=== PATIENT | male | born 1960 | race Caucasian/White ===

== ENCOUNTER 2018-01-08 13:29 | Inpatient (IN) ==
--- NOTE | 2018-01-08 15:54 | Internal Med History&Physical ---
<Steven Grace - Last Filed: 01/08/18 17:07> Date of Encounter: 01/08/18 Time of Encounter: 15:00 Internal Medicine - H&P: HPI Chief complaint: Left hemianopsia Admitted From: Direct Admit Plans for Post Hospital Care: Home History of present illness: Mr. Sparrow is a 57 year old male PMHx hiatal hernia, anxiety on Valium, chornic pain on [place], presents today as recommended by Dr. Brizuela due to left- sided hemianopsia for 1.5 months. Skull XR with retained magnetic metal on right lateral scapl, but was ok to perform MRI. MRI last week with demonstrated right occipital infarction and hemorrhage, right paraoccipital junction infarct , cortical laminar necrosis, old infarcts at left occipital and right frontal lobe. Patient did not come to [facility] until today. He reports hemianopsia started 1.5 months ago after nerve block for chronic back pain. He also developed left sided numbness and tingling for 3 days that self-resolved. He denies previous CAD history, smoking, [place]. Never had stress test, echo, LHC in the past. Denies history of seizures. Has never been on aspirin or statin. He is not on anti- hypertensives. He admits to worsening memory but denies MURO, confusion, CP, palpitations, SOB, cough, abdominal pain, n/v/d/c. He reports hemianopsia is only on left eye. Denies worsening floaters. Has never happened before. Denies eye pain or eye discharge. Past Med Surg Social Fam HX - Past Medical History Medical history: arthritis, GERD Additional medical history: DDD Psychiatric history: anxiety, depression - Past Surgical History Surgical History: herniorrhaphy Additional surgical history: egd - Social History Smoking Status: Never smoker Smokeless Tobacco Status: No Alcohol use: none Drug use: none - Family History Mother Living Status: Age at : 77 Cause of : dementia Internal Medicine - H&P: Meds Cyanocobalamin (Vitamin B-12) [Vitamin B12] 1,000 mcg PO DAILY 06/01/16 [History ] Ergocalciferol (VITAMIN D2) [Vitamin D] 400 unit PO DAILY 06/01/16 [History] Ginseng 200 mg PO DAILY 06/01/16 [History] Omeprazole [PriLOSEC] 20 mg PO BIDAC 06/01/16 [History] Aspirin [Aspirin] 81 mg PO DAILY 01/08/18 [History] HYDROcodone/Acet 10/325 mg [[place] 10-325 mg] 1 tab PO Q6HR PRN 01/08/18 [History ] Tizanidine HCl 4 mg PO BID PRN 01/08/18 [History] diazePAM [Valium] 5 mg PO BID PRN 01/08/18 [History] 3 Allergy/AdvReac Type Severity Reaction Status Date / Time tramadol Allergy Hives Verified 06/01/16 10:19 lactase [From Dairy Aid] AdvReac Gastrointestinal Verified 06/01/16 10:19 Upset ROS unobtainable: due to endotracheal tube All Systems PM: A 10-system review of systems was performed and is negative for pertinent findings except as documented above in the HPI. - Constitutional Constitutional: as per HPI - EENT Eyes: as per HPI Ears: as per HPI - Cardiovascular Cardiovascular ROS IM: as per HPI - Respiratory Respiratory: as per HPI - Gastrointestinal Gastrointestinal: as per HPI - Genitourinary Genitourinary ROS male: as per HPI - Integumentary Integumentary IM: as per HPI - Neurological Neurological ROS: as per HPI - Psychiatric Psychiatric: as per HPI - Hematologic/Lymphatic Hematologic/Lymphatic: as per HPI - Constitutional Vitals: Temp Pulse Resp BP Pulse Ox 98.3 F 80 16 159/97 97 01/08/18 14:30 01/08/18 14:30 01/08/18 14:30 01/08/18 14:30 01/08/18 14:30 General appearance: Present: A&O X 3, no acute distress, answers questions appropriately Exam: NAD - Head Head exam: Present: atraumatic, normal inspection, normocephalic - Eye Eye exam: Present: EOMI, normal appearance, PERRL Pupils: Present: PERRL Additional comments: Loss of left sided visual field by left eye. - Neck Neck exam general surgery: Present: full ROM - Respiratory Respiratory exam: Present: CTAB. Absent: accessory muscle use, rales, wheezes - Cardiovascular Cardiovascular exam: Present: RRR, +S1, +S2 - GI/Abdominal GI/Abdominal exam: Present: soft, no peritoneal signs. Absent: diminished bowel sounds, guarding, hyperactive bowel sounds - Extremities Exam Extremities exam: Present: normal inspection. Absent: pedal edema - Neurological Exam Neurological exam: Present: alert, CN II-XII intact, oriented X3, no focal deficits, strengths equal and symetr throughout. Absent: motor sensory deficit - Psychiatric Psychiatric exam: Present: normal affect, normal mood Internal Med - H&P Results - Labs CBC & Chem 7: 01/08/18 15:46 01/08/18 15:46 - Assessment and plan (1) Stroke of unknown etiology Current Visit: Yes Status: Acute Assessment and plan: MRI with signs of multi-infarcts. Etiology unknown. Left hemiopsia noted. No loss of sensation or strength testing. Patient also complaining of headache for the last [address] head/ brain wo contrast to rule out acute bleed. Pending EKG, BL Carotid Duplex, Echo. Patient passed dysphagia screening. Ok to start cardiac diet. Tox screen to rule out illicit drug use Will start atorvastatin 40mg daily and baby aspirin. NIHSS Pending labs: coagulation studies CBC COMT Urine tox Heparin anti-factor XA Lpid cascade Troponin UA Dr. Steiner has contacted Dr. Perkins in regards to patient being here. Neurology consult and recommendations appreciated. (2) Hypertension Current Visit: Yes Status: Acute Assessment and plan: permissive hypertension in the setting of possible hemorrhagic stroke. Continue to monitor vital signs. Qualifiers: Hypertension type: essential hypertension Qualified Code(s): I10 - Essential (primary) hypertension (3) Hemianopia of left eye Current Visit: Yes Status: Acute Assessment and plan: see above. (4) DVT prophylaxis Current Visit: Yes Status: Acute Assessment and plan: SCDs - Time Spent With Patient Total time spent is greater than 50% in coordination of care (as documented) at patient's floor/unit and/or counseling patient: Greater than 35 minutes <Andrez Steiner - Last Filed: 01/08/18 18:49> Date of Encounter: 01/08/18 Internal Medicine - H&P: HPI History of present illness: Mr. Sparrow is a 57 year old male All Systems PM: A 10-system review of systems was performed and is negative for pertinent findings except as documented above in the HPI. - Constitutional Vitals: Temp Pulse Resp BP Pulse Ox 98.3 F 80 16 159/97 97 01/08/18 14:30 01/08/18 14:30 01/08/18 14:30 01/08/18 14:30 01/08/18 14:30 Internal Med - H&P Results - Labs CBC & Chem 7: 01/08/18 15:46 01/08/18 15:46 Labs: Short CBC 01/08/18 Range/Units 15:46 WBC 8.0 (4.3-11.1) K/mcL Hgb 16.2 (12.9-16.9) g/dL Hct 46.3 (37.5-50.1) % Plt Count 233 (140-400) K/mcL Neutrophils # 4.1 (1.6-8.9) K/mcL BMP 01/08/18 15:46 Sodium 137 Potassium 3.8 Chloride 108 H Carbon Dioxide 23 BUN 15 Creatinine 1.17 Glucose 96 Calcium 9.5 Cardiac Enzymes 01/08/18 Range/Units 15:46 Troponin I < 0.03 (< 0.04) ng/mL Liver Function 01/08/18 Range/Units 15:46 Total Bilirubin 0.3 (0.3-1.0) mg/dL AST 19 (13-39) Units/L ALT 27 (7-52) Units/L Alkaline Phosphatase 101 (34-104) Units/L Albumin 4.4 (3.5-5.7) g/dL - Assessment and plan (1) CVA (cerebral vascular accident) Current Visit: Yes Status: Acute Qualifiers: CVA mechanism: embolism Precerebral and cerebral artery: posterior cerebral artery Laterality of affected vessel: left Qualified Code(s): I63.432 - Cerebral infarction due to embolism of left posterior cerebral artery (2) Hypertension Current Visit: Yes Status: Chronic Qualifiers: Hypertension type: essential hypertension Qualified Code(s): I10 - Essential (primary) hypertension (3) Hyperlipidemia Current Visit: Yes Status: Chronic Qualifiers: Hyperlipidemia type: mixed hyperlipidemia Qualified Code(s): E78.2 - Mixed hyperlipidemia - Time Spent With Patient Total time spent is greater than 50% in coordination of care (as documented) at patient's floor/unit and/or counseling patient: - Attending Attestation I examined this patient and my medical decision-making was reviewed with the Resident Physician on 01/08/18. I agree with the documented findings, disposition and treatment plan as described except to the extent set forth below. Mr Sparrow is 57 y/o male with hx of chronic back pain direct admitted due to acute CVA. He was evaluated in office last week and had hemianopsia. MRI showed acute occipital CVA as well as additional subacute/acute CVA. He was to be admitted last Monday but did not come in until today. Currently he has no new neuro complaints. He is only complaining of headache since MRI. He does say that he feels heart "fluttering" occasionally. Exam alert Comfortable Mucus membranes dry Heart reg No wheeze L hemianopsia present Abd soft No edema. I/P 1. Acute CVA - most likely embolic. Echo, carotid. ASA. Neuro eval. Tele. May need loop recorder if everything is negative. Further diagnoses and plan as above.
[2018-01-08 16:03] LABS: Basophils # 0.1 K/mcL (0.0-0.2); Basophils % 0.9 %; Eosinophils # 0.1 K/mcL (0.0-0.6); Eosinophils % 1.6 %; Hematocrit 46.3 % (37.5-50.1); Hemoglobin 16.2 g/dL (12.9-16.9); Immature Granulocytes % 0.3 % (0-4); Lymphocytes % 36.9 %; Mean Corpuscular Hemoglobin 30.2 pg (28.0-33.3); Mean Corpuscular Volume 86.2 fL (83.0-100.0); Monocytes # 0.7 K/mcL (0.0-1.3); Monocytes % 8.9 %; Neutrophils # 4.1 K/mcL (1.6-8.9); Platelet Count 233 K/mcL (140-400); Red Blood Count 5.37 M/mcL (4.19-5.50); Segmented Neutrophils % 51.4 %
[2018-01-08 16:11] LABS: Heparin anti-factor XA UFH 0.07 IU/mL (0.30-0.70)
[2018-01-08 16:14] LABS: Activated Partial Thrombo Time 28.8 Seconds (26.0-36.0); Estimated Average Glucose 117 mg/dl; Hemoglobin A1C 5.7 %
[2018-01-08 16:20] LABS: Alanine Aminotransferase 27 Units/L (7-52); Albumin 4.4 g/dL (3.5-5.7); Albumin/Globulin Ratio 1.4 (1.1-2.2); Alkaline Phosphatase 101 Units/L (34-104); Aspartate Amino Transferase 19 Units/L (13-39); BUN/Creatinine Ratio 13 (6-26); Bilirubin,Total 0.3 mg/dL (0.3-1.0); Blood Urea Nitrogen 15 mg/dL (6-20); Calcium 9.5 mg/dL (8.6-10.3); Carbon Dioxide 23 mEq/L (23-29); Chloride 108 mEq/L (98-107); Chol/HDL Ratio 9.5 (0-4.9); Cholesterol 265 mg/dL (< 200); Globulin 3.2 g/dL (2.4-3.5); Glucose 96 mg/dL (70-105); HDL Cholesterol 28 mg/dL (40-59); Osmolality,Calculated 285 (280-300); Potassium 3.8 mEq/L (3.5-5.1); Sodium 137 mEq/L (136-145); Total Protein 7.6 g/dL (6.4-8.9); Triglycerides 433 mg/dL (< 150); eGFR For Non-African Americans > 60 (> 60)
[2018-01-08 16:33] LABS: LDL Cholesterol,Direct 175 mg/dL (75-193)
[2018-01-08] MEDS ORDERED: Isovue-370 500 ML INFUS..BTL IV ONE (17:48)
--- NOTE | 2018-01-08 17:52 | Neurology - Consult Note ---
Date of Encounter: 01/09/18 Time of Encounter: 10:07 Assessment and Plan (1) CVA (cerebral vascular accident) Current Visit: Yes Status: Acute 57 year old man with HTN, obesity and hyperlipidemia who suffered acute right occipital lobe infarct, this could be occlusion of right FIELD TEST ENGINEER or embolic phenomenon. He has no known history of cardiac dysarhythmia. Cause of stroke is mostly likely atherosclerosis to intracranial vasculature but embolic phenomenon can not be excluded. This is a rather young patient therefore would recommend CARLOS to look for source of emboli. CTA of head is unable to confirm presence of right FIELD TEST ENGINEER occlusion. Patient is currently asymptomatic. Will keep him on Aspirin daily and continue statin therapy. He is advised to get sleep study as an outpatient. Regulate BP and treat HTN aggressively. Already out of acute phase of stroke. Case discussed with primary medical team. Qualifiers: CVA mechanism: occlusion Precerebral and cerebral artery: posterior cerebral artery Laterality of affected vessel: right Qualified Code(s): I63.531 - Cerebral infarction due to unspecified occlusion or stenosis of right posterior cerebral artery History of Present Illness Chief complaint: Visual difficulty and stroke HPI: Mr. Sparrow is a 57 year old male with PMH significant for degenerative joint disease, chronic pain who is consulted regarding abnormal MRI of brain findings of right occipital infarct. Patient developed visual changes about one and half months ago. Describes loss of visual field to the left side, without any significant motor weakness. Then he was ordered MRI of brain which was done last Monday showing presence of right occipital subacute infarct. He was advised to go to ER to be admitted but her refused at the time and then showed up yesterday and was then admitted for work up. He states that his visual slightly improved but he still has problems to the left visual field. He denies headaches, weakness, speech difficulty. He saw an eyewear manufacturing supervisor who told him the his vision is 20/20. At the time of the interview, CTA of neck and head were completed. No significant major artery stenosis reported. Echo result is pending Patient is on Aspirin 81mg daily and statin therapy. Has history of HTN but not been compliant with therapy Past Med Surg Social Fam HX - Past Medical History Medical history: arthritis, GERD Additional medical history: DDD Psychiatric history: anxiety, depression - Past Surgical History Surgical History: herniorrhaphy Additional surgical history: egd - Social History Smoking Status: Never smoker Smokeless Tobacco Status: No Alcohol use: none Drug use: none - Family History Mother Living Status: Age at : 77 Cause of : dementia Medications and Allergies Cyanocobalamin (Vitamin B-12) [Vitamin B12] 1,000 mcg PO DAILY 06/01/16 [History ] Ergocalciferol (VITAMIN D2) [Vitamin D] 400 unit PO DAILY 06/01/16 [History] Ginseng 200 mg PO DAILY 06/01/16 [History] Omeprazole [PriLOSEC] 20 mg PO BIDAC 06/01/16 [History] Aspirin [Aspirin] 81 mg PO DAILY 01/08/18 [History] HYDROcodone/Acet 10/325 mg [[place] 10-325 mg] 1 tab PO Q6HR PRN 01/08/18 [History ] Tizanidine HCl 4 mg PO BID PRN 01/08/18 [History] diazePAM [Valium] 5 mg PO BID PRN 01/08/18 [History] 3 Allergy/AdvReac Type Severity Reaction Status Date / Time tramadol Allergy Hives Verified 06/01/16 10:19 lactase [From Dairy Aid] AdvReac Gastrointestinal Verified 06/01/16 10:19 Upset All Systems: The remainder of the systems were reviewed and are negative Physical Examination - Vital Signs Vital Signs: Initial Vital Signs Temp Pulse Resp BP Pulse Ox 98.3 F 80 16 159/97 97 01/08/18 14:30 01/08/18 14:30 01/08/18 14:30 01/08/18 14:30 01/08/18 14:30 - Constitutional General appearance: comfortable - Neurologic Sensorimotor examination: intact Detailed motor examination: grossly full strength in all extremities Motor examination - right side: 5/5: deltoids, biceps, triceps, wrist flexion, wrist extension, construction field engineer, hip flexors, tibialis Anterior, quadriceps, toe extension (EHL), plantarflexion Detailed sensory examination: intact Posture: other (None) Reflex and gait examination: intact Reflexes: Biceps: 2+, Triceps: 2+, Brachioradialis: 2+, Patella: 2+, Achilles: 2 + Mental Status Examination: awake, alert, oriented to person, oriented to place, oriented to time, follows commands appropriately, answers questions appropriately, no agnosia, no aphasia, no aproxia Cranial nerve examination: PERRL, EOMI, visual weems intact (Left hemianopsia noted, especially upper quadrant), corneal reflexes brisk symmetrically, sensory to face intact, mastication intact, no facial asymmetry is present, no dysarthria, hearing is intact symmetrically, soft palate elevates bilaterally upon phonation, gag reflex intact, flexes SCM and trapezius muscles symmetrically with full power, tongue protrudes midline, no atrophy or facial fasiculations present Results - Laboratory Findings CBC and BMP: 01/08/18 15:46 01/08/18 15:46 Abnormal lab findings: Abnormal lab results MPV 9.0 fL (9.4-12.4) L 01/08/18 15:46 Heparin Anti-Xa, Unfract 0.07 IU/mL (0.30-0.70) L 01/08/18 15:46 Chloride 108 mEq/L (98-107) H 01/08/18 15:46 Hemoglobin A1c 5.7 % (-5.6) H 01/08/18 15:46 Triglycerides 433 mg/dL (< 150) H 01/08/18 15:46 Cholesterol 265 mg/dL (< 200) H 01/08/18 15:46 HDL Cholesterol 28 mg/dL (40-59) L 01/08/18 15:46 Cholesterol/HDL Ratio 9.5 (0-4.9) H 01/08/18 15:46 Consult Discharge Plan - Plan Referrals: Torrey Smith DO [Primary Care Provider] -
[2018-01-08] MEDS ORDERED: tiZANidine 4 MG TABLET PO PRN (18:41)
[2018-01-08] MEDS: diazePAM 5 MG TABLET PO PRN (20:20)
[2018-01-08] MEDS: *HR* HYDROcodone/Acet 10/325 mg TABLET PO PRN (20:20)
[2018-01-08 23:48] LABS: Bilirubin,Urine Negative (Negative); Blood,Urine Negative (Negative); Clarity,Urine Clear (Clear); Color,Urine Yellow (Yellow); Glucose,Urine (UA) Normal (Normal); Ketones,Urine Negative (Negative); Leukocyte Esterase,Urine Negative (Negative); Nitrite,Urine Negative (Negative); Protein,Urine Negative (Neg-Trace); Specific Gravity,Urine 1.015 (1.010-1.025); Urobilinogen,Urine Normal (Normal)
[2018-01-09 00:15] LABS: Amphetamine Screen,Urine Negative ng/mL (Cutoff=1000); Barbiturate Screen,Urine Negative ng/mL (Cutoff=200); Benzodiazepines Screen,Urine Positive ng/mL (Cutoff=200); Cannabinoid Screen,Urine Negative ng/mL (Cutoff = 50); Cocaine Screen,Urine Negative ng/mL (Cutoff= 300); Opiate Screen,Urine Positive ng/mL (Cutoff=300); Phencyclidine Screen,Urine Negative ng/mL (Cutoff=25)
[2018-01-09] MEDS: *HR* HYDROcodone/Acet 10/325 mg TABLET PO PRN ×3 (02:23→15:26)
[2018-01-09] MEDS: diazePAM 5 MG TABLET PO PRN ×2 (08:50→15:26)
[2018-01-09] MEDS ORDERED: Aspirin 81 MG TAB.CHEW PO SCH (09:00)
[2018-01-09 11:40] VITALS: BP 131/85
--- NOTE | 2018-01-09 13:46 | Discharge Summary ---
<Steven Grace - Last Filed: 01/09/18 13:40> - NOTES TO OUTPATIENT PROVIDER Notes to Outpatient Provider: Started patient on atorvastatin 80mg daily, Toprol 100mg daily, ASA 81mg daily Orders not resulted at time of discharge: Pending orders 01/08/18 14:37 ECG 12 lead ECG [ECG] Routine Date of Encounter: 01/09/18 Time of Encounter: 09:00 - Discharge Diagnosis (1) Stroke of unknown etiology Priority: Primary Status: Acute (2) Hypertension Priority: Secondary Status: Chronic Qualifiers: Hypertension type: essential hypertension Qualified Code(s): I10 - Essential (primary) hypertension (3) Hemianopia of left eye Priority: Secondary Status: Acute Hospital course: Mr. Sparrow is a 57 year old male has a history of hiatal hernia, anxiety on Valium, chronic pain on [place], presented for left-sided hemianopsia for 1-1/2 months. Skull x-ray outpatient demonstrated retained magnetic metal on right lateral scalp but MRI was okay to perform. MRI last week demonstrated right occipital infarction and hemorrhage, right paroxysmal purulence and infarct, cortical laminar necrosis, old infarcts at left occipital and right frontal lobe. He reports that hemianopsia started 1.5 months ago after nerve block for chronic back pain. He also developed left-sided numbness and tingling for 3 days that self resolved. No history of CAD, smoking, [place]. No history of stress test, echo, left heart catheter in the past. Denies worsening floaters, eye pain, eye discharge. Patient also reported three-day history of headache after MRI last week. 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 No signs of limiting stenosis. Patient denied any left-sided current numbness or tingling. No focal deficits were found besides the left-sided hemianopsia secondary to subacute infarct of occipital lobe. Neurology was consulted. No acute interventions required at this time. He is to follow up with neurology outpatient for monitoring of saccular aneurysm. Start on BB (patient reports adverse effects with ACEI), atorvastatin, and ASA. Discharge discussed with: patient Time spent discussing smoking cessation with patient: 3 to 10 minutes - Time Spent with Patient Total time spent providing and/or coordinating discharge services: Greater than 30 minutes - Discharge Medications Prescriptions: Atorvastatin [Lipitor] 80 mg PO HS #30 tablet Metoprolol Succinate 100 mg PO DAILY #30 tab.er.24h Home Medications: Cyanocobalamin (Vitamin B-12) [Vitamin B12] 1,000 mcg PO DAILY 06/01/16 [History ] Ergocalciferol (VITAMIN D2) [Vitamin D] 400 unit PO DAILY 06/01/16 [History] Ginseng 200 mg PO DAILY 06/01/16 [History] Omeprazole [PriLOSEC] 20 mg PO BIDAC 06/01/16 [History] Aspirin 81 mg PO DAILY 01/08/18 [History] HYDROcodone/Acet 10/325 mg [[place] 10-325 mg] 1 tab PO Q6HR PRN 01/08/18 [History ] Tizanidine HCl 4 mg PO BID PRN 01/08/18 [History] Atorvastatin [Lipitor] 80 mg PO HS #30 tablet 01/09/18 [Rx] Metoprolol Succinate 100 mg PO DAILY #30 tab.er.24h 01/09/18 [Rx] Allergies/Adverse Reactions: 3 Allergy/AdvReac Type Severity Reaction Status Date / Time tramadol Allergy Hives Verified 06/01/16 10:19 lactase [From Dairy Aid] AdvReac Gastrointestinal Verified 06/01/16 10:19 Upset Date of admission: 01/08/18 14:09 Primary care physician: Torrey Smith, Consults: 01/08/18 17:00 Consult to Neurology [CONS] Stat Consulting Provider: Neurology [facility] Reason for Consult: left hemianopsia Call Completed: Yes 01/08/18 18:40 PT [Consult to Physical Therapy] [CONS] Routine Comment: Evaluate, develop and implement POC Reason for Consult: Acute CVA Does patient have active BEDREST order?: No Is patient medically & hemodynamically stable?: Yes Patient assessed for mobility or mobilized this visit?: Yes Discharging clinician: Steven Grace Anticipated date of discharge: 01/09/18 - Constitutional Vitals: Temp Pulse Resp BP Pulse Ox 97.6 F 72 17 131/85 98 01/09/18 11:37 01/09/18 11:37 01/09/18 11:37 01/09/18 11:37 01/09/18 11:37 General appearance: Present: A&O X 3, no acute distress, answers questions appropriately Exam: General appearance: Present: A&O X 3, no acute distress, answers questions appropriately. NAD - Head Head exam: Present: atraumatic, normal inspection, normocephalic - Eye Eye exam: Present: EOMI, normal appearance, PERRL Pupils: Present: PERRL Additional comments: Loss of left sided visual field by left eye. - Neck Neck exam general surgery: Present: full ROM - Respiratory Respiratory exam: Present: CTAB. Absent: accessory muscle use, rales, wheezes - Cardiovascular Cardiovascular exam: Present: RRR, +S1, +S2 - GI/Abdominal GI/Abdominal exam: Present: soft, no peritoneal signs. Absent: diminished bowel sounds, guarding, hyperactive bowel sounds - Extremities Exam Extremities exam: Present: normal inspection. Absent: pedal edema - Neurological Exam Neurological exam: Present: alert, CN II-XII intact, oriented X3, no focal deficits, strengths equal and symetr throughout. Absent: motor sensory deficit - Psychiatric Psychiatric exam: Present: normal affect, normal mood - Patient Status Disposition: Home, Self-Care Condition: Good Functional capacity at discharge: independent ambulation Overall status at discharge: patient is back to baseline - Discharge Instructions Instructions: Metoprolol (By mouth), Atorvastatin (By mouth), Heart Healthy Diet (DC), Hyperlipidemia (DC), Ischemic Stroke, Bread Packer (GEN) Follow Up With: Torrey Smith DO [Primary Care Provider] - 01/16/18 4:00 pm (Dr. Ramachandran will see patient due to Dr. Smith being out of the office- This RN made office aware of patients request for a psych referal.) Lázaro Crum MD [Partnered Physician] - 01/30/18 1:00 pm (Patient to arrive 30 mins early for paperwork. ) - Diet and Activity Activity: resume usual activities as tolerated <Chino Mejia - Last Filed: 01/09/18 17:14> Orders not resulted at time of discharge: Pending orders 01/08/18 14:37 ECG 12 lead ECG [ECG] Routine Date of Encounter: 01/09/18 - Discharge Diagnosis (1) Hypertension Status: Chronic Qualifiers: Hypertension type: essential hypertension Qualified Code(s): I10 - Essential (primary) hypertension (2) CVA (cerebral vascular accident) Status: Acute Qualifiers: CVA mechanism: occlusion Precerebral and cerebral artery: posterior cerebral artery Laterality of affected vessel: right Qualified Code(s): I63.531 - Cerebral infarction due to unspecified occlusion or stenosis of right posterior cerebral artery (3) Hyperlipidemia Status: Chronic Qualifiers: Hyperlipidemia type: mixed hyperlipidemia Qualified Code(s): E78.2 - Mixed hyperlipidemia Hospital course: Mr. Sparrow is a 57 year old male - Time Spent with Patient Total time spent providing and/or coordinating discharge services: Date of admission: 01/08/18 14:09 Primary care physician: Torrey Smith, Consults: 01/08/18 17:00 Consult to Neurology [CONS] Stat Consulting Provider: Neurology [facility] Reason for Consult: left hemianopsia Call Completed: Yes 01/08/18 18:40 PT [Consult to Physical Therapy] [CONS] Routine Comment: Evaluate, develop and implement POC Reason for Consult: Acute CVA Does patient have active BEDREST order?: No Is patient medically & hemodynamically stable?: Yes Patient assessed for mobility or mobilized this visit?: Yes - Constitutional Vitals: Temp Pulse Resp BP Pulse Ox 97.6 F 72 17 131/85 98 01/09/18 11:37 01/09/18 11:37 01/09/18 11:37 01/09/18 11:37 01/09/18 11:37 - Attending Attestation I performed an independent interview and examine this patient. I agree with the findings, assessment, and plan of , internal medicine resident. Case was also discussed with neurology and we appreciate their input she continues was a restrained intervention, including aspirin, statin, and a beta aysha added for blood pressure control. Apparently he is intolerant to lisinopril, stating it makes his heart go crazy. Patient states he has been worked up in the past for A. fib with negative outcome of studies including Holter monitoring. Patient is stable for discharge. Exam: Gen. no acute distressNAD AAOx3 Ht RRR Lungs clear Neurological nonfocal
== END 2018-01-09 15:29 | disposition home or self-care (01) | DRG 45 ==
LOC: 3BNU
PROVIDERS: ADMIT Internal Medicine; ATTEND Internal Medicine